=== PATIENT | female | born 1955 | race Caucasian/White ===

== ENCOUNTER 2018-01-27 14:30 | Outpatient (CLI) | payer BC | END 2018-01-27 14:31 | disposition home or self-care (01) | LOC: BICMRI 14:30 | PROVIDERS: ATTEND Psychiatry & Neurology Neurology with Special Qualifications in Child Neurology | DX: Q85.01 Neurofibromatosis, type 1 (principal); M54.2 Cervicalgia; M79.671 Pain in right foot; S86.311A Strain of muscle(s) and tendon(s) of peroneal muscle group at lower leg level, right leg, initial encounter; R22.1 Localized swelling, mass and lump, neck; M47.22 Other spondylosis with radiculopathy, cervical region; M99.81 Other biomechanical lesions of cervical region | CPT/HCPCS: 72156 ==

== ENCOUNTER 2018-05-26 12:40 | Outpatient (CLI) | payer BC | END 2018-05-26 12:41 | disposition home or self-care (01) | LOC: BICCT 12:40 | PROVIDERS: ATTEND Psychiatry & Neurology Neurology with Special Qualifications in Child Neurology | DX: Q85.01 Neurofibromatosis, type 1 (principal); E07.9 Disorder of thyroid, unspecified | CPT/HCPCS: 70496; 70498; 82565 ==